=== PATIENT | female | born 1995 | race Caucasian/White ===

== ENCOUNTER 2017-09-10 19:13 | Emergency (ER) | payer SELFPAY ==
[~2017-09-10] VITALS: Ht 167.6 cm; Wt 71.0 kg
[2017-09-10 19:38] VITALS: BP 129/75
== END 2017-09-10 19:54 | disposition left against medical advice (07) ==
LOC: ED 19:25
DX: F10.120 Alcohol abuse with intoxication, uncomplicated (principal)
CPT/HCPCS: 93005; 99283

== ENCOUNTER 2019-02-10 10:14 | Emergency (ER) | payer SELFPAY ==
[~2019-02-10] VITALS: Ht 160 cm; Wt 60.0 kg
[2019-02-10 10:41] LABS: BASOPHILS # (AUTO) 0.03 x10^3/uL (0-0.1); BASOPHILS % (AUTO) 0 % (0-1); EOSINOPHILS # (AUTO) 0.09 x10^3/uL (0-0.4); EOSINOPHILS % (AUTO) 1 % (1-7); LYMPHOCYTES # (AUTO) 1.54 x10^3/uL (1-3.4); LYMPHOCYTES % (AUTO) 22 % (22-44); MD NO; MEAN CORPUSCULAR HEMOGLOBIN 29.5 pg (27.0-34.8); MEAN CORPUSCULAR HGB CONC 33.3 g/dL (32.4-35.8); MEAN CORPUSCULAR VOLUME 88.7 fL (80-100); MEAN PLATELET VOLUME 12.3 fL (7.4-10.4); MONOCYTES % (AUTO) 4 % (2-9); NEUTROPHILS # (AUTO) 4.98 x10^3/uL (1.8-6.8); NEUTROPHILS % (AUTO) 72 % (42-75); PLATELET COUNT 160 x10^3/uL (130-400)
--- NOTE | 2019-02-10 10:50 | NUR ---
WHEN SPEAKING WITH PT, SHE PAUSES BEFORE ANSWERING. SHE IS ANXIOUS AND FEELS LIKE SOMETHING IS WRONG WITH HER, LIKE SEE HAS AIDS OR IS GOING THROUGH WITHDRAWAL OR IS HAVING AN ALLERGIC REACTION. PT STATES SHE DOESN'T WANT TO BE IN THE HOSPITAL FOREVER BUT INDICATING SHE NEEDS HELP. EQUIPMENT AND SUPPLIES SECURED BEHIND PULL DOWN DOORS, SITTER IN DIRECT VIEW OF PT AND PT'S BELONGINGS REMOVED AND PUT IN LOCKER
[2019-02-10 10:54] LABS: ALANINE AMINOTRANSFERASE 76 U/L (12-78); ALBUMIN 4.5 g/dL (3.4-5.0); ANION GAP 9 mmol/L (5-15); CALCIUM 9.7 mg/dL (8.5-10.1); CHLORIDE 105 mmol/L (98-107); CREATININE 0.68 mg/dL (0.55-1.02)
[2019-02-10 10:59] LABS: ALKALINE PHOSPHATASE 80 U/L (45-117); BILIRUBIN,TOTAL 0.6 mg/dL (0.2-1.0); SALICYLATE LEVEL 3.4 mg/dL (2.8-20.0); TOTAL PROTEIN 8.3 g/dL (6.4-8.2)
[2019-02-10 11:06] LABS: AMPHETAMINE SCREEN, URINE Negative (Negative); BARBITURATE SCREEN, URINE Negative (Negative); BENZODIAZEPINE SCREEN, URINE Negative (Negative); CANNABINOID SCREEN, URINE Positive (Negative); COCAINE SCREEN, URINE Negative (Negative); METHADONE SCREEN, URINE Negative (Negative); OPIATE SCREEN, URINE Negative (Negative)
[2019-02-10 11:41] LABS: MICROSCOPIC INDICATED
[2019-02-10 11:42] LABS: CULTURE INDICATED? YES
--- NOTE | 2019-02-10 12:00 | NUR ---
PT PROVIDED LUNCH TRAY BUT NOT EATING IT
--- NOTE | 2019-02-10 12:47 | NUR ---
SPOKE WITH PT'S MOTHER HUMA [phone]. MOTHER STATES PT HAS NOT SLEPT BUT A FEW HOURS SINCE SUNDAY. PT HAS BEEN SOBER ALMOSST 16 MONTHS BUT HAS BEEN SMOKING MARIJUANA CONSTANTLY THE LAST FEW DAYS. MOTHER STATES SHE HAS HAD PERIODS OF INSOMNIA LIKE THIS BEFORE. PT HAS NOT BEEN DIAGNOSED WITH SCHIZOPHRENIA OR BIPOLAR BUT HER FATHER IS BIPOLAR. PT HAS BEEN STANDING AT DOOR AND WANTS TO GO HOME. CONTINUE TO EXPLAIN TO PT THAT WE ARE GOING TO GET HER HELP SO THAT SHE FEELS BETTER AND CAN EVENTUALLY GO HOME
[2019-02-10] MEDS ORDERED: ZIPRASIDONE 20MG CAPSULE ONE (12:58)
[2019-02-10] MEDS ORDERED: ZIPRASIDONE 20MG CAPSULE PO ONE (13:00)
[2019-02-10] MEDS ORDERED: CEFDINIR 300 MG CAPSULE PO ONE (14:00)
--- NOTE | 2019-02-10 14:00 | NUR ---
PT STANDING AT DOOR OF ROOM
--- NOTE | 2019-02-10 14:01 | NUR ---
PACKET FAXED TO [facility]
[2019-02-10] MEDS ORDERED: CEFDINIR 300 MG CAPSULE ONE (14:06)
--- NOTE | 2019-02-10 15:00 | NUR ---
JOSELYN ANALYTICAL STATISTICIAN EXAMINING PT
--- NOTE | 2019-02-10 16:45 | NUR ---
MOTHER VISITING WITH PT. MOTHER THEN CAME OUT OF ROOM AND SPOKE WITH THIS NURSE TO EXPRESS CONCERN OVER ABUSIVE RELATIONSHIP PT HAS WITH A BOYFRIEND WHO IS CURRENTLY IN SNF.
--- NOTE | 2019-02-10 17:56 | NUR ---
TASK RN: FIRST CONTACT WITH PT. Provided pt dinner tray. Pt appreciative.
--- NOTE | 2019-02-10 17:56 | NUR ---
Cari de anda in [facility] - 02/10/19 at 1816 by PAULA PROVIDED LUNCH
--- NOTE | 2019-02-10 18:59 | NUR ---
REPORT TO MONICA SAINI
--- NOTE | 2019-02-10 19:47 | NUR ---
Cari de anda in ED - 02/10/19 at 1951 by ENRIQUE Cab called for pt for safe dc back to step 2.
--- NOTE | 2019-02-10 19:48 | NUR ---
Cari de anda in ED - 02/10/19 at 1952 by ENRIQUE Patient/Caregiver given discharge instructions and they have confirmed that they understand the instructions. Patient ambulatory with steady gait.
--- NOTE | 2019-02-10 19:52 | NUR ---
PT GIVEN H20, SITTER OUTSIDE ROOM FOR CONITNOUS SAFETY MONITORING.
[2019-02-10] MEDS ORDERED: QUETIAPINE 100MG TABLET ONE (19:54)
[2019-02-10] MEDS ORDERED: NICOTINE 14MG/24 HR PATCH.TD24 TD ONE (20:00)
[2019-02-10] MEDS ORDERED: NICOTINE 14MG/24 HR PATCH.TD24 ONE (20:01)
[2019-02-10] MEDS ORDERED: QUETIAPINE 100MG TABLET PO SCH (21:00)
--- NOTE | 2019-02-10 21:30 | NUR ---
Pt resting in room. Pt has equal chest rise, good cap refill and unlabored breathing. Pt has aviation safety officer outside room for continous monitoring.
[2019-02-10] MEDS ORDERED: ALBUTEROL SULFATE 2.5 MG/3 ML ONE (23:30)
--- NOTE | 2019-02-11 00:46 | NUR ---
PT SLEEPING ON GURNEY. NO ACUTE DISTRESS NOTED AT THIS TIME. SITTER AT DOORWAY FOR OBSERVATION.
--- NOTE | 2019-02-11 02:15 | NUR ---
PT PROVIDED WITH WATER REQUESTED. NO ADDITONAL NEEDS AT THIS TIME.
--- NOTE | 2019-02-11 03:30 | NUR ---
PT SLEEPING ON GURNEY IN SECURED ROOM. SITTER OUTSIDE ROOM FOR OBSERVATION. WILL CONT TO MONITOR.
[2019-02-11 05:39] VITALS: BP 115/70
--- NOTE | 2019-02-11 05:42 | NUR ---
RN WOKE PT UP FOR AM VITAL SIGNS. PT ASKED IF SHE STILL FELT LIKE HARMING HERSELF. PT STATED "NO, I WANT TO GO HOME". VITAL SIGNS STABLE AND WILL CONT TO MONITOR.
--- NOTE | 2019-02-11 07:02 | NUR ---
REPORT RECEIVED FROM RIK RN. PT RESTING ON EDGE OF CURNEY, STATES SHE IS ANXIOUS AT THIS TIME, TREMORS IN HANDS PRESENT DURING THIS TIME, PT CALMED WITH TALKING TO PT. NAD NOTED.
--- NOTE | 2019-02-11 08:30 | NUR ---
PT GIVEN BREAKFAST MEAL, NO OTHER NEEDS AT THIS TIME, SITTER REMAIN IN VIEW OF PT FOR SI PRECAUTIONS
--- NOTE | 2019-02-11 10:45 | NUR ---
PT STANDING AND PACING IN RM, CALM AT THIS TIME, ASKING WHEN SHE WILL SEE PSYCHIATRIST. PT NEEDING FREQUENT REMINDING THAT SHE WILL SPEAK TO THE PROVIDER TODAY, ERON CHOUDHARY
--- NOTE | 2019-02-11 11:05 | NUR ---
REPORT GIVEN TO TEODORO AT [facility]. EXPECTING PT TO TRANSFER APPROXIMATELY [id number]
--- NOTE | 2019-02-11 11:58 | NUR ---
PT UPDATED ON POC, LUNCH TRAY ORDERED. NAD NOTED, NO OTHER NEEDS
--- NOTE | 2019-02-11 13:00 | NUR ---
PT REFUSED LUNCH TRAY
--- NOTE | 2019-02-11 15:37 | NUR ---
[facility] HERE TO TRANSPORT PT TO RECIEVING FACILITY. ALL BELONGINGS RETURNED TO PT AND VERIFIED ALL PRESENT. PT STABLE ON TRANSFER
== END 2019-02-11 15:50 ==
LOC: ED 11:11
DX: F33.3 Major depressive disorder, recurrent, severe with psychotic symptoms (principal); N39.0 Urinary tract infection, site not specified; R45.851 Suicidal ideations
CPT/HCPCS: 36415; 80053; 80307; 81001; 84703; 85025; 87086; 99285